=== PATIENT | male | born 1955 | race Caucasian/White ===

== ENCOUNTER 2019-01-02 11:06 | Emergency (ER) | payer BC ==
[2019-01-02 11:24] VITALS: BP 133/72
--- NOTE | 2019-01-02 11:37 | UC ---
Skin Complaint HPI - HPI Summary HPI Summary: 63-year-old male comes in with a chief complaint of a rash on the left upper thigh. He noticed it this morning and showered is tender to palpation. Not tender when not touching it. It's erythematous and about 1 cm diameter. 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 Feels well otherwise. - History of Current Complaint Chief Complaint: UCSkin Time Seen by Provider: 01/02/19 11:26 Stated Complaint: LEFT THIGH SKIN - TICK Pain Intensity: 0 - Allergy/Home Medications Allergies/Adverse Reactions: Allergies Allergy/AdvReac Type Severity Reaction Status Date / Time No Known Allergies Allergy Verified 01/02/19 11:24 Home Medications: Home Medications Levothyroxine Sodium 25 mcg PO DAILY 01/02/19 [History Confirmed 01/02/19] PMH/Surg Hx/FS Hx/Imm Hx Previously Healthy: Yes Endocrine History: Hypothyroidism - Surgical History Surgical History: None - Family History Known Family History: Positive: Non-Contributory - Social History Alcohol Use: Occasionally Substance Use Type: None Smoking Status (MU): Never Smoked Tobacco Review of Systems All Other Systems Reviewed And Are Negative: Yes Constitutional: Positive: Negative Skin: Positive: Other - see hpi Eyes: Positive: Negative ENT: Positive: Negative Respiratory: Positive: Negative Cardiovascular: Positive: Negative Gastrointestinal: Positive: Negative Motor: Positive: Negative Neurovascular: Positive: Negative Musculoskeletal: Positive: Negative Neurological: Positive: Negative Psychological: Positive: Negative Is Patient Immunocompromised?: No Physical Exam Triage Information Reviewed: Yes Appearance: Well-Appearing, No Pain Distress, Well-Nourished Vital Signs: Initial Vital Signs Temp 97.6 F 01/02/19 11:20 Pulse 66 01/02/19 11:20 Resp 16 01/02/19 11:20 BP 133/72 01/02/19 11:20 Pulse Ox 99 01/02/19 11:20 Vital Signs Reviewed: Yes Eye Exam: Normal Eyes: Positive: Conjunctiva Clear Neck: Positive: Supple Respiratory: Positive: No respiratory distress Musculoskeletal: Positive: Strength Intact, ROM Intact Neurological: Positive: Alert, Muscle Tone Normal Psychological Exam: Normal Psychological: Positive: Age Appropriate Behavior Skin: Positive: Other - Left upper anterior thigh 1cm diameter erythematous non blanching rash. Mildly tender to palpation. No FB seen. No streaking. Course/Dx - Course Course Of Treatment: RASH HAS THE APPEARANCE OF TICK BITE RASH BUT, IS NOT BULLS EYE IN APPEARANCE. THEREFORE, RX DOXY 200MG PO X 1. - Diagnoses Provider Diagnosis: Tick bite of left thigh, Rash Discharge - Sign-Out/Discharge Documenting (check all that apply): Patient Departure All imaging exams completed and their final reports reviewed: No Studies - Discharge Plan Condition: Stable Disposition: HOME Prescriptions: DOXYcycline CAP(*) [DOXYcycline 100MG CAP(*)] 200 mg PO DAILY #2 cap Patient Education Materials: Tick Bite (ED), Acute Rash (ED) Referrals: Iram Boswell [Primary Care Provider] - Additional Instructions: FOLLOW UP WITH YOUR DOCTOR IF NOT COMPLETELY IMPROVED. GET RECHECKED SOONER IF YOUR CONDITION WORSENS; BULLS EYE RASH, SYMPTOMS OF LYME DISEASE OR ANY QUESTIONS OR CONCERNS. - Billing Disposition and Condition Condition: STABLE Disposition: Home
== END 2019-01-02 11:44 | disposition home or self-care (01) ==
LOC: UCCORT 11:06
DX: S70.362A Insect bite (nonvenomous), left thigh, initial encounter (principal); R21 Rash and other nonspecific skin eruption; W57.XXXA Bitten or stung by nonvenomous insect and other nonvenomous arthropods, initial encounter; Y92.9 Unspecified place or not applicable; E03.9 Hypothyroidism, unspecified
CPT/HCPCS: 99212; G0463